=== PATIENT | female | born 1975 | race Hispanic/Latino ===

== ENCOUNTER 2020-12-28 10:48 | Emergency (ER) | payer OTHER ==
[~2020-12-28] VITALS: Ht 149.9 cm; Wt 57.4 kg
[2020-12-28] MEDS ORDERED: MORPHINE SULFATE INJ 4 MG/ML INJ 1ML IV STA (11:01)
[2020-12-28] MEDS ORDERED: ACETAMINOPHEN 325 MG TAB PO STA (11:01)
[2020-12-28] MEDS ORDERED: ONDANSETRON HCL INJ 2MG/ML 2ML 2 MG/ML VIAL IV STA (11:01)
[2020-12-28] MEDS ORDERED: SODIUM CHLORIDE 0.9% 1000ML 1,000 ML IV STA ×2 (11:01→12:21)
[2020-12-28] MEDS ORDERED: IOPAMIDOL 370 MG/ML 200 ML INFUS..BTL INJ ONE (11:12)
[2020-12-28] MEDS ORDERED: SODIUM CHLORIDE 0.9% 50ML 50 ML ONE (11:12)
[2020-12-28] MEDS ORDERED: SODIUM CHLORIDE 0.9% 1000ML 1,000 ML ONE ×2 (11:19→12:32)
[2020-12-28] MEDS ORDERED: MORPHINE SULFATE INJ 4 MG/ML INJ 1ML ONE (11:19)
[2020-12-28] MEDS ORDERED: ONDANSETRON HCL INJ 2MG/ML 2ML 2 MG/ML VIAL ONE (11:19)
[2020-12-28] MEDS ORDERED: ACETAMINOPHEN 325 MG TAB ONE (11:19)
[2020-12-28] MEDS ORDERED: CIPRO500 MG PO (12:39)
[2020-12-28] MEDS ORDERED: ONDANSETRON ODT4 MG PO (12:39)
[2020-12-28] MEDS ORDERED: DIFLUCAN200 MG PO (12:39)
[2020-12-28] MEDS ORDERED: FLAGYL500 MG PO (12:39)
[2020-12-28 13:55] VITALS: BP 85/43
== END 2020-12-28 13:13 | disposition home or self-care (01) ==
LOC: FSED 11:01
DX: R10.32 Left lower quadrant pain (principal); R11.0 Nausea; K52.9 Noninfective gastroenteritis and colitis, unspecified; I95.9 Hypotension, unspecified
CPT/HCPCS: 74177; 80048; 80076; 81003; 81025; 85025; 96360; 96374; 96375; 99284; J2270; J2405; J7030; Q9967